=== PATIENT | male | born 1970 | race Caucasian/White ===

== ENCOUNTER 2023-10-23 17:55 | Emergency (ER) | payer OTHER ==
[~2023-10-23] VITALS: Ht 182.9 cm; Wt 76.7 kg
[2023-10-24] MEDS: colchicine 0.6mg tablet PO ONE (00:46)
[2023-10-24 01:03] LABS: BASOPHILS % (AUTO) 0.5 % (0-1); EOSINOPHILS # (AUTO) 0.2 X10'3 (0-0.9); EOSINOPHILS % (AUTO) 2.7 % (0-6); HEMATOCRIT 39.9 % (42.0-52.0); HEMOGLOBIN 13.7 g/dl (14.0-17.9); LYMPHOCYTES # (AUTO) 1.7 X10'3 (1.1-4.8); LYMPHOCYTES % (AUTO) 28.1 % (21-51); MEAN CORPUSCULAR HEMOGLOBIN 31.4 PG (27.0-31.0); MEAN CORPUSCULAR HGB CONC 34.4 g/dL (33.0-36.5); MEAN CORPUSCULAR VOLUME 91.3 FL (78-98); MEAN PLATELET VOLUME 8.6 FL (7.4-10.4); MONOCYTES # (AUTO) 0.7 X10'3 (0-0.9); NEUTROPHILS # (AUTO) 3.4 X10'3 (1.8-7.7); NEUTROPHILS % (AUTO) 56.7 % (42-75); PLATELET COUNT 180 X10'3 (140-440); RED BLOOD COUNT 4.37 X10'6 (4.70-6.10); RED CELL DISTRIBUTION WIDTH 12.8 % (11.5-14.5); WHITE BLOOD COUNT 6.1 X10'3 (4.5-11.0)
[2023-10-24] MEDS ORDERED: NO HOME MEDS (01:04)
[2023-10-24 01:32] LABS: ALANINE AMINOTRANSFERASE 42 U/L (12-78); ALBUMIN 3.5 G/DL (3.4-5.0); ALBUMIN/GLOBULIN RATIO 0.8 (1.1-1.5); ALKALINE PHOSPHATASE 52 IU/L (46-116); ANION GAP 12 (8-16); ASPARTATE AMINO TRANSFERASE 24 U/L (10-37); BILIRUBIN,TOTAL 0.3 MG/DL (0.1-1.0); BLOOD UREA NITROGEN 9 MG/DL (7-18); CALCIUM 9.1 MG/DL (8.5-10.1); CHLORIDE 101 MMOL/L (99-107); GLUCOSE 89 MG/DL (70-104); MAGNESIUM 1.9 MG/DL (1.5-2.4); POTASSIUM 3.6 MMOL/L (3.5-5.1); PRO BRAIN NATRIURETIC PEPTIDE 49 PG/ML (0-125); SODIUM 138 MMOL/L (135-145); TOTAL CARBON DIOXIDE 24.9 MMOL/L (24-32); TOTAL PROTEIN 7.8 G/DL (6.4-8.2); URIC ACID 8.4 MG/DL (3.5-7.2); eCRCL 102 ML/MIN; eGFR 88 ML/MIN
[2023-10-24] MEDS: oxyCODONE SR 10mg (sust. release) tab PO STA (01:43)
[2023-10-24] MEDS: colchicine 0.6mg tablet PO STA (02:34)
[2023-10-24] MEDS ORDERED: OXYC-658 PO (02:43)
[2023-10-24] MEDS ORDERED: MELO-102 PO (02:43)
[2023-10-24 02:51] VITALS: BP 180/94; PULSE 66; RESP 16; TEMP 96.6; O2SAT 98
== END 2023-10-24 02:56 | disposition home or self-care (01) ==
LOC: ER 17:57
DX: M10.9 Gout, unspecified (principal); J06.9 Acute upper respiratory infection, unspecified; R05.9 Cough, unspecified; R53.81 Other malaise; R11.10 Vomiting, unspecified
CPT/HCPCS: 36415; 71045; 80053; 83735; 83880; 84484; 84550; 85025; 93005; 99285

== ENCOUNTER 2024-02-02 18:50 | Emergency (ER) | payer OTHER ==
[~2024-02-02] VITALS: Ht 185.4 cm; Wt 99.2 kg
[~2024-02-02 18:50] MED LIST: MELO-102 PO; NO HOME MEDS
[2024-02-02 20:16] LABS: BILIRUBIN,URINE NEGATIVE (Neg); CLARITY,URINE CLEAR (Clear); COLOR,URINE STRAW (Yellow); GLUCOSE, URINE NEGATIVE (Neg); KETONES,URINE NEGATIVE (Neg); LEUKOCYTE ESTERASE ,URINE NEGATIVE (Neg); NITRITES, URINE NEGATIVE (Neg); OCCULT BLOOD,URINE NEGATIVE (Neg); PROTEIN,URINE NEGATIVE (Neg); UROBILINOGEN,URINE 0.2 E.U/dL (0.2-1.0)
--- NOTE | 2024-02-02 20:22 | NUR ---
CSSRS Screener shows patient at moderate risk, sitter outside of room. MD aware. Patient states they are not currently having thoughts of suicidal ideation.
[2024-02-02 20:24] LABS: UA COLLECTION TYPE CLN CATCH MIDSTREAM
[2024-02-02 20:25] LABS: BASOPHILS % (AUTO) 0.7 % (0-1); EOSINOPHILS # (AUTO) 0.2 X10'3 (0-0.9); EOSINOPHILS % (AUTO) 3.3 % (0-6); HEMATOCRIT 42.6 % (42.0-52.0); HEMOGLOBIN 14.7 g/dl (14.0-17.9); LYMPHOCYTES % (AUTO) 39.2 % (21-51); MEAN CORPUSCULAR HEMOGLOBIN 31.2 PG (27.0-31.0); MEAN CORPUSCULAR HGB CONC 34.5 g/dL (33.0-36.5); MEAN CORPUSCULAR VOLUME 90.5 FL (78-98); MEAN PLATELET VOLUME 8.8 FL (7.4-10.4); MONOCYTES # (AUTO) 0.6 X10'3 (0-0.9); NEUTROPHILS # (AUTO) 2.3 X10'3 (1.8-7.7); NEUTROPHILS % (AUTO) 44.8 % (42-75); PLATELET COUNT 159 X10'3 (140-440); RED CELL DISTRIBUTION WIDTH 13.5 % (11.5-14.5); WHITE BLOOD COUNT 5.1 X10'3 (4.5-11.0)
[2024-02-02 20:29] LABS: ALANINE AMINOTRANSFERASE 59 U/L (12-78); ALBUMIN 3.9 G/DL (3.4-5.0); ALBUMIN/GLOBULIN RATIO 0.9 (1.1-1.5); ALKALINE PHOSPHATASE 55 IU/L (46-116); ANION GAP 11 (8-16); ASPARTATE AMINO TRANSFERASE 27 U/L (10-37); BILIRUBIN,TOTAL 0.3 MG/DL (0.1-1.0); BLOOD UREA NITROGEN 6 MG/DL (7-18); BUN/CREATININE RATIO 6.3 (10.0-20.0); CALCIUM 9.1 MG/DL (8.5-10.1); CHLORIDE 106 MMOL/L (99-107); CREATININE 0.96 MG/DL (0.60-1.10); ETHANOL 108 MG/DL (<10); GLUCOSE 84 MG/DL (70-104); POTASSIUM 4.3 MMOL/L (3.5-5.1); SODIUM 144 MMOL/L (135-145); TOTAL CARBON DIOXIDE 26.7 MMOL/L (24-32); TOTAL PROTEIN 8.3 G/DL (6.4-8.2); eCRCL 98 ML/MIN; eGFR 81 ML/MIN
[2024-02-02 20:30] LABS: URINE AMPHETAMINE SCREEN NEGATIVE (Neg); URINE BARBITUATE SCREEN NEGATIVE (Neg); URINE BENZODIAZEPINES SCREEN NEGATIVE (Neg); URINE CANNABINOID SCREEN NEGATIVE (Neg); URINE COCAINE SCREEN NEGATIVE (Neg); URINE METHADONE SCREEN NEGATIVE (Neg); URINE OPIATE SCREEN NEGATIVE (Neg); URINE PHENCYCLIDINE SCREEN NEGATIVE (Neg)
[2024-02-02] MEDS: diazepam 5mg tablet PO ONE (21:32)
[2024-02-02 22:20] LABS: THYROID STIMULATING HORMONE 1.33 ulU/ml (0.34-4.50)
[2024-02-03] MEDS: acetaminophen 325mg tablet PO ONE (00:11)
[2024-02-03] MEDS: LORazepam 1 MG tablet PO ONE (01:31)
[2024-02-03] MEDS: diphenhydrAMINE 25mg capsule PO ONE (01:31)
--- NOTE | 2024-02-03 01:40 | NUR ---
PACKET FAXED TO [facility]
--- NOTE | 2024-02-03 01:50 | NUR ---
PT SLEEPING ON BED = RISE AND FALL OF CHEST NO VERBAL NOR VISUAL SIGNS OF DISCOMFORT OR DISTRESS
--- NOTE | 2024-02-03 02:04 | NUR ---
THE PACKET HAS BEEN SENT
--- NOTE | 2024-02-03 04:00 | NUR ---
PT SLEEPING ON BED = RISE AND FALL OF CHEST NO VERBAL NOR VISUAL SIGNS OF DISCOMFORT OR DISTRESS
--- NOTE | 2024-02-03 06:00 | NUR ---
PT SLEEPING ON BED = RISE AND FALL OF CHEST NO VERBAL NOR VISUAL SIGNS OF DISCOMFORT OR DISTRESS
--- NOTE | 2024-02-03 07:40 | NUR ---
CALLED [facility] OFFICE, REC'D CHART.
[2024-02-03 10:50] VITALS: BP 132/72; PULSE 67; RESP 18; TEMP 98.1; O2SAT 99
== END 2024-02-03 10:52 | disposition home or self-care (01) ==
LOC: EEVIPCON 18:51 → ER 18:51
DX: F32.A Depression, unspecified (principal); Z20.822 Contact with and (suspected) exposure to COVID-19; M79.672 Pain in left foot; R79.89 Other specified abnormal findings of blood chemistry
CPT/HCPCS: 36415; 73630; 80053; 80305; 80320; 81003; 82948; 84443; 85025; 87811; 99284; Q0163

== ENCOUNTER 2024-02-20 23:03 | Emergency (ER) | payer OTHER ==
[~2024-02-20] VITALS: Ht 185.4 cm; Wt 97.7 kg
[~2024-02-20 23:03] MED LIST changes: -MELO-102 PO
[2024-02-20 23:10] VITALS: TEMP 99.2
[2024-02-20 23:58] LABS: SYPHILIS SCREENING TEST POC NEGATIVE (Negative)
[2024-02-21 00:19] VITALS: BP 148/94; PULSE 78; RESP 17; O2SAT 99
== END 2024-02-21 00:33 | disposition home or self-care (01) ==
LOC: ER 23:03
DX: Z00.00 Encounter for general adult medical examination without abnormal findings (principal)
CPT/HCPCS: 36415; 99283